=== PATIENT | male | born 2000 | race Caucasian/White ===

== ENCOUNTER 2023-01-25 20:31 | Emergency (ER) | payer OTHER, BC ==
[2023-01-25] MEDS ORDERED: Lidocaine 1% 10 ML MDV INJECT ONE (23:10)
[2023-01-26] MEDS ORDERED: Bupivacaine 0.5% 10 ML SDV INJECT ONE (00:02)
== END 2023-01-26 00:30 | disposition home or self-care (01) ==
LOC: JD.ED 20:31
DX: S81.011A Laceration without foreign body, right knee, initial encounter (principal); S90.32XA Contusion of left foot, initial encounter; S30.810A Abrasion of lower back and pelvis, initial encounter; Z88.0 Allergy status to penicillin; Z88.1 Allergy status to other antibiotic agents; Z91.048 Other nonmedicinal substance allergy status; Z91.010 Allergy to peanuts; Z91.018 Allergy to other foods; Z88.8 Allergy status to other drugs, medicaments and biological substances; V86.56XA Driver of dirt bike or motor/cross bike injured in nontraffic accident, initial encounter; Y92.410 Unspecified street and highway as the place of occurrence of the external cause
CPT/HCPCS: 12002; 73562; 73620; 99283; J3490